=== PATIENT | male | born 2000 | race Caucasian/White ===

== ENCOUNTER 2024-12-19 17:25 | Emergency (ER) | payer OTHER ==
[~2024-12-19] VITALS: Ht 185.4 cm; Wt 90.9 kg
[2024-12-19 17:28] VITALS: O2SAT 99
[2024-12-19] MEDS ORDERED: BACT800T5 PO (20:10)
[2024-12-19 20:11] VITALS: BP 137/84; TEMP 99.3
[2024-12-19] MEDS: BACTRIM 160MG/800MG DS TAB PO ONE (20:11)
== END 2024-12-19 20:17 | disposition home or self-care (01) ==
LOC: M ED 17:25
DX: L03.032 Cellulitis of left toe (principal); Z79.2 Long term (current) use of antibiotics